=== PATIENT | female | born 1935 | race Caucasian/White ===

== ENCOUNTER 2023-11-06 13:42 | Outpatient (OUT) | payer MEDICARE, SELFPAY ==
--- NOTE | 2023-11-06 | CONS_ITS ---
CONSULTATION DATE: 11/06/2023 TO: Dr. Piña CHIEF COMPLAINT: Includes right low back pain. HISTORY OF PRESENT ILLNESS: Review of systems, past medical/surgical history were obtained and documented on the health questionnaire and is available upon request. Patient is an 88-year-old female, reports having this pain for at least the last two months, but on further questioning, she reports that she has had these symptoms since at least late last year, she reports. In general, the pain has rated her pain as between 5-7/10 pain, sharp in character, increased with activities such as standing and walking and performing transitioning maneuvers. Denies any change in bowel and bladder habits or new sensorimotor changes in the lower extremities. She also had suffered a sacral fracture. It appeared to occur last year, in April. She also appeared to have sustained a compression fracture approximately in early September, but she reports this particular pain has been with her since prior to her sacral insufficiency fracture, and she does describe it as sharp in character. MEDICATION: Current medication includes tramadol 50 mg b.i.d. p.r.n. Her MOISES on today?s visit was 57. EXAM: On examination, she has a non-focal sensorimotor exam of the lower extremities. She has severe pain with lumbar facet loading maneuvers on the right side from L4-S1 with associate myofascial spasm of the lumbar paravertebral muscles. Patient had absolutely no percussion tenderness of any of the lower thoracic and lumbar spinous processes. She had no appreciable percussion tenderness overlying her sacrum. IMPRESSION: Our impression is patient with chronic pain secondary to her lumbosacral spondylosis and facet joint loading pain clinically on the right side at L4-5, L5-S1, and a history of compression fracture, which is unrelated to her current symptoms, and lastly, myofascial spasm of the lumbar paravertebral muscles. RECOMMENDATIONS: I recommend the patient proceed with a diagnostic right sided L4-5, L5-S1 medial branch block. I have give her a supra lumbosacral corset and I have refilled her tramadol and recommended aquatic therapy. As part of providing excellent, safe, comprehensive care, the following was completed at our patient's visit: 1. A medication reconciliation and review to ensure accurate knowledge of current/active medications, including asking our patients to inform us about any [id number] medications or herbal remedies/nutritional supplements/alternative remedies. 2. A review to specifically ensure our patients have had annual screening for: elevated body mass index (BMI, see intake chart for exact total), tobacco use, screening for depression, and screening for unhealthy alcohol use. When screening is concerning, patients are provided with education and the specific recommendation to discuss the concerning health issue and treatment options with their primary care provider. [facility]
== END 2023-11-06 13:43 | disposition home or self-care (01) ==
LOC: PM 13:43
PROVIDERS: PCP Family Medicine; Visit Provider Anesthesiology Pain Medicine
DX: M47.816 Spondylosis without myelopathy or radiculopathy, lumbar region (principal); M62.838 Other muscle spasm
CPT/HCPCS: G0463